=== PATIENT | female | born 1935 | race Caucasian/White ===

== ENCOUNTER 2020-11-14 11:06 | Inpatient (IN) | payer OTHER ==
[~2020-11-14 11:06] MED LIST: PREDNISONE 20MG20 MG PO
[2020-11-14 12:27] LABS: BASOPHIL 0.5 % (0-2); EOSINOPHIL 2.4 % (0-7); HCT 43.6 % (37.0-47.0); HGB 14.2 g/dl (12.5-16.0); LYMPHOCYTE 29.3 % (15-48); MCH 31.2 pg (25.0-31.0); MCHC 32.6 g/dL (32.0-36.0); MCV 95.8 fL (78.0-100.0); MONOCYTE 8.9 % (0-12); MPV 8.1 fL (6.0-9.5); NEUTROPHIL 58.7 % (41-80); NRBC 0; PLT 260 K/uL (150-400); RBC 4.55 M/uL (4.20-5.40); RDW 11.6 % (11.5-14.0); WBC 5.5 K/uL (4.0-10.5)
[2020-11-14 12:53] LABS: ALBUMIN 3.1 g/dL (3.4-5.0); BILIRUBIN - TOTAL 0.4 mg/dL (0.2-1.0); BUN/CREAT RATIO (CALC) 14.3 RATIO; CREATININE 1.05 mg/dL (0.51-0.95); GLOBULIN (CALCULATION) 3.5 g/dL; MAGNESIUM 1.7 mg/dL (1.8-2.4); POTASSIUM 4.5 mmol/L (3.5-5.1); TOTAL PROTEIN 6.6 g/dL (6.4-8.2)
[2020-11-14 14:32] LABS: BILIRUBIN NEGATIVE (NEGATIVE); BLOOD NEGATIVE Ery/uL (NEGATIVE); CLARITY CLEAR (CLEAR); COLOR YELLOW (YELLOW); GLUCOSE (U) NORMAL (NORMAL); LEUKOCYTES NEGATIVE Leu/uL (NEGATIVE); NITRITE NEGATIVE (NEGATIVE); PROTEIN NEGATIVE (NEGATIVE); UROBILINOGEN 0.2 mg/dL (0.2-1.0); pH 7.5 (5.0-9.0)
[2020-11-14] MEDS ORDERED: CHLORTHALIDONE25 MG PO (22:47)
[2020-11-14] MEDS ORDERED: LEVOTHYROXINE75 MC1 PO (22:47)
[2020-11-14] MEDS ORDERED: MINIPRES1 MG PO (22:48)
[2020-11-14] MEDS ORDERED: SERTRALINE HCL50 MG PO (22:48)
[2020-11-14] MEDS ORDERED: LOVASTATIN10 MG PO (22:48)
[2020-11-15 05:22] LABS: BUN/CREAT RATIO (CALC) 16.8 RATIO; CREATININE 1.01 mg/dL (0.51-0.95); POTASSIUM 3.9 mmol/L (3.5-5.1)
[2020-11-15] MEDS ORDERED: SERTRALINE HCL50 MG PO (06:01)
--- NOTE | 2020-11-15 10:00 | NUR ---
PATIENT GOT HERSELF UP TO BEDSIDE COMMODE, HAD REMOVED TELEMETRY LEADS AND PULLED OUT BOTH IV ACCESS SITES. PATIENT CONFUSED, STATES SHE WAS "JUST GETTING READY TO GET OUT OF HERE". REORIENTED PATIENT, REPLACED TELEMETRY LEADS AND STARTED NEW #20 IN RFA. PATIENT REPOSITIONED IN BED WITH BED ALARM AND TV ON
[2020-11-16 06:11] LABS: BASOPHIL 0.4 % (0-2); EOSINOPHIL 1.7 % (0-7); HCT 44.2 % (37.0-47.0); HGB 14.1 g/dl (12.5-16.0); MCH 29.9 pg (25.0-31.0); MCHC 31.9 g/dL (32.0-36.0); MCV 93.6 fL (78.0-100.0); MONOCYTE 9.1 % (0-12); MPV 8.3 fL (6.0-9.5); NEUTROPHIL 53.5 % (41-80); NRBC 0; PLT 244 K/uL (150-400); RBC 4.72 M/uL (4.20-5.40); RDW 11.5 % (11.5-14.0); WBC 7.2 K/uL (4.0-10.5)
[2020-11-16 06:20] LABS: POTASSIUM 4.1 mmol/L (3.5-5.1)
[2020-11-17 01:08] LABS: CALCIUM, SERUM 9.8 mg/dL (8.7-10.3); PTH, INTACT 44 pg/mL (15-65)
[2020-11-17 06:27] LABS: BASOPHIL 0.6 % (0-2); EOSINOPHIL 2.4 % (0-7); HCT 42.5 % (37.0-47.0); HGB 13.7 g/dl (12.5-16.0); LYMPHOCYTE 36.6 % (15-48); MCH 30.6 pg (25.0-31.0); MCHC 32.2 g/dL (32.0-36.0); MCV 94.9 fL (78.0-100.0); MPV 8.3 fL (6.0-9.5); NEUTROPHIL 49.8 % (41-80); NRBC 0; PLT 243 K/uL (150-400); RBC 4.48 M/uL (4.20-5.40); RDW 11.9 % (11.5-14.0); WBC 6.6 K/uL (4.0-10.5)
[2020-11-17] MEDS ORDERED: ELIQUIS5 MG PO (10:39)
[2020-11-17] MEDS ORDERED: PROAMATINE5 MG PO (10:39)
== END 2020-11-17 14:00 | disposition home health service (06) | DRG 65 ==
LOC: FER 11:06 → FMS 19:09
PROVIDERS: Emergency Medicine; Internal Medicine; ADMIT Allergy & Immunology Allergy
PROC: B24BZZZ Ultrasonography of Heart with Aorta (ICD-10-PCS; principal; 2020-11-14)
DX: I63.9 Cerebral infarction, unspecified (principal); G91.9 Hydrocephalus, unspecified; I48.0 Paroxysmal atrial fibrillation; I10 Essential (primary) hypertension; F03.90 Unspecified dementia, unspecified severity, without behavioral disturbance, psychotic disturbance, mood disturbance, and anxiety; I95.1 Orthostatic hypotension; E03.9 Hypothyroidism, unspecified; I25.10 Atherosclerotic heart disease of native coronary artery without angina pectoris; E83.52 Hypercalcemia; Z20.822 Contact with and (suspected) exposure to COVID-19
CPT/HCPCS: 36415; 70450; 70551; 71045; 80048; 80053; 81003; 82310; 82330; 83605; 83735; 83970; 84484; 85025; 87088; 93005; 93880; 97116; 97162; 97166; 97530-GP; 97535; U0002

== ENCOUNTER 2021-01-29 16:32 | Day surgery (SDCO) | payer OTHER ==
[~2021-01-29 16:32] MED LIST changes: +CHLORTHALIDONE25 MG PO; +ELIQUIS5 MG PO; +LEVOTHYROXINE75 MC1 PO; +LOVASTATIN10 MG PO; +MINIPRES1 MG PO; +PROAMATINE5 MG PO; +SERTRALINE HCL50 MG PO
[2021-01-29 19:20] LABS: BASOPHIL 0.8 % (0-2); EOSINOPHIL 0.9 % (0-7); HCT 42.5 % (37.0-47.0); HGB 13.7 g/dl (12.5-16.0); LYMPHOCYTE 26.7 % (15-48); MCHC 32.2 g/dL (32.0-36.0); MCV 96.2 fL (78.0-100.0); MONOCYTE 9.3 % (0-12); MPV 9.7 fL (6.0-9.5); NRBC 0; PLT 246 K/uL (150-400); RBC 4.42 M/uL (4.20-5.40); RDW 13.6 % (11.5-14.0); WBC 7.9 K/uL (4.0-10.5)
[2021-01-29 19:40] LABS: ALBUMIN 3.7 g/dL (3.4-5.0); BILIRUBIN - TOTAL 0.9 mg/dL (0.2-1.0); BUN/CREAT RATIO (CALC) 15.3 RATIO; CREATININE 1.18 mg/dL (0.51-0.95); GLOBULIN (CALCULATION) 3.1 g/dL; POTASSIUM 3.8 mmol/L (3.5-5.1); TOTAL PROTEIN 6.8 g/dL (6.4-8.2)
[2021-01-29 20:07] LABS: CORONAVIRUS 2019 SARS-COV-2 NEGATIVE (NEGATIVE); INFLUENZA A NAA NEGATIVE (NEGATIVE)
--- NOTE | 2021-01-30 00:33 | NUR ---
NURSE CALLED FAMILY AT 1233 FOR MED REC, FAMILY SAID THEY WERE SLEEPING AND DID NOT GIVE MEDS. NURSE WILL LET [facility] KNOW TO REVIEW MED REC IN MORNING
[2021-01-30 05:44] LABS: BASOPHIL 0.8 % (0-2); HGB 12.6 g/dl (12.5-16.0); LYMPHOCYTE 24.7 % (15-48); MCH 30.7 pg (25.0-31.0); MCHC 32.3 g/dL (32.0-36.0); MCV 94.9 fL (78.0-100.0); MONOCYTE 9.4 % (0-12); MPV 9.6 fL (6.0-9.5); NEUTROPHIL 63.7 % (41-80); NRBC 0; PLT 227 K/uL (150-400); RBC 4.11 M/uL (4.20-5.40); RDW 13.5 % (11.5-14.0); WBC 7.8 K/uL (4.0-10.5)
[2021-01-30 06:06] LABS: BUN/CREAT RATIO (CALC) 17.3 RATIO; CREATININE 1.1 mg/dL (0.51-0.95); POTASSIUM 3.8 mmol/L (3.5-5.1)
[2021-01-31 03:59] LABS: BASOPHIL 0.9 % (0-2); EOSINOPHIL 1.2 % (0-7); HCT 42.2 % (37.0-47.0); HGB 13.5 g/dl (12.5-16.0); LYMPHOCYTE 30.2 % (15-48); MCH 30.5 pg (25.0-31.0); MCV 95.3 fL (78.0-100.0); MONOCYTE 9.3 % (0-12); MPV 9.8 fL (6.0-9.5); NRBC 0; PLT 234 K/uL (150-400); RBC 4.43 M/uL (4.20-5.40); RDW 13.7 % (11.5-14.0); WBC 8.5 K/uL (4.0-10.5)
[2021-01-31 04:18] LABS: BUN/CREAT RATIO (CALC) 15.4 RATIO; CREATININE 1.3 mg/dL (0.51-0.95); POTASSIUM 3.5 mmol/L (3.5-5.1)
[2021-01-31 04:21] LABS: MAGNESIUM 2.2 mg/dL (1.8-2.4)
[2021-02-01 05:34] LABS: BASOPHIL 0.6 % (0-2); EOSINOPHIL 2.7 % (0-7); HCT 42.1 % (37.0-47.0); LYMPHOCYTE 32.7 % (15-48); MCH 30.5 pg (25.0-31.0); MCHC 33.3 g/dL (32.0-36.0); MCV 91.7 fL (78.0-100.0); MONOCYTE 10.3 % (0-12); MPV 9.4 fL (6.0-9.5); NEUTROPHIL 53.6 % (41-80); NRBC 0; PLT 258 K/uL (150-400); RBC 4.59 M/uL (4.20-5.40); RDW 13.3 % (11.5-14.0); WBC 7.8 K/uL (4.0-10.5)
[2021-02-01 05:51] LABS: CREATININE 1.19 mg/dL (0.51-0.95); MAGNESIUM 1.8 mg/dL (1.8-2.4)
[2021-02-01 10:39] LABS: BILIRUBIN NEGATIVE (NEGATIVE); BLOOD NEGATIVE Ery/uL (NEGATIVE); CLARITY CLEAR (CLEAR); GLUCOSE (U) NORMAL (NORMAL); LEUKOCYTES NEGATIVE Leu/uL (NEGATIVE); NITRITE NEGATIVE (NEGATIVE); PROTEIN NEGATIVE (NEGATIVE); UROBILINOGEN 0.2 mg/dL (0.2-1.0)
[2021-02-01 10:49] LABS: COLOR STRAW (YELLOW)
[2021-02-01 10:51] LABS: SQUAMOUS EPITHELIAL CELLS RARE; URINARY WBC RARE
[2021-02-01] MEDS ORDERED: LOPRESSOR25 MG PO (14:19)
[2021-02-01] MEDS ORDERED: LASIX40 MG PO (14:19)
[2021-02-01] MEDS ORDERED: K-DUR20 MEQ PO (14:33)
--- NOTE | 2021-02-01 14:59 | NUR ---
02/01/21 Ms. Kramer has her own home. Her son and [id number], Sanam and Jair Kramer, take Ms. Kramer to their home every day after breakfast. She returns to her home at bedtime. Ms. Kramer has a rw. - A referral was made to [facility] per patient choice for nursing only. A report was given to MS GALINA Fitch.
== END 2021-02-01 15:36 | disposition home health service (06) ==
LOC: FER 16:32 → FMS 22:09
PROVIDERS: Emergency Medicine; Internal Medicine; Nurse Practitioner; ADMIT Internal Medicine
DX: I13.0 Hypertensive heart and chronic kidney disease with heart failure and stage 1 through stage 4 chronic kidney disease, or unspecified chronic kidney disease (principal); I50.1 Left ventricular failure, unspecified; I48.0 Paroxysmal atrial fibrillation; F03.90 Unspecified dementia, unspecified severity, without behavioral disturbance, psychotic disturbance, mood disturbance, and anxiety; N18.2 Chronic kidney disease, stage 2 (mild); E87.6 Hypokalemia; I95.1 Orthostatic hypotension; E03.9 Hypothyroidism, unspecified; J98.11 Atelectasis; E86.0 Dehydration; Z20.822 Contact with and (suspected) exposure to COVID-19; Z79.01 Long term (current) use of anticoagulants; Z79.890 Hormone replacement therapy; Z79.899 Other long term (current) drug therapy; Z86.73 Personal history of transient ischemic attack (TIA), and cerebral infarction without residual deficits; Z87.09 Personal history of other diseases of the respiratory system
CPT/HCPCS: 36415; 36600; 71045; 71250; 80048; 80053; 81001; 82803; 83735; 83880; 84443; 84484; 85025; 93005; G0378; J0696; J1940; J3475; J7030; J7040; U0002

== ENCOUNTER 2021-04-08 10:46 | Emergency (ER) | payer OTHER ==
[~2021-04-08 10:46] MED LIST changes: +K-DUR20 MEQ PO; +LASIX40 MG PO; +LOPRESSOR25 MG PO
[2021-04-08 11:31] LABS: BASOPHIL 0.5 % (0-2); EOSINOPHIL 1.2 % (0-7); HCT 49.1 % (37.0-47.0); HGB 16.1 g/dl (12.5-16.0); LYMPHOCYTE 39.8 % (15-48); MCH 29.6 pg (25.0-31.0); MCHC 32.8 g/dL (32.0-36.0); MCV 90.3 fL (78.0-100.0); MONOCYTE 8.3 % (0-12); MPV 8.9 fL (6.0-9.5); NEUTROPHIL 50.1 % (41-80); NRBC 0; PLT 182 K/uL (150-400); RBC 5.44 M/uL (4.20-5.40); RDW 13.4 % (11.5-14.0); WBC 8.2 K/uL (4.0-10.5)
[2021-04-08 12:07] LABS: ALBUMIN 3.9 g/dL (3.4-5.0); BILIRUBIN - TOTAL 0.7 mg/dL (0.2-1.0); BUN/CREAT RATIO (CALC) 18.3 RATIO; CREATININE 1.15 mg/dL (0.51-0.95); GLOBULIN (CALCULATION) 3.8 g/dL; TOTAL PROTEIN 7.7 g/dL (6.4-8.2)
[2021-04-08 12:15] LABS: BILIRUBIN NEGATIVE (NEGATIVE); BLOOD NEGATIVE Ery/uL (NEGATIVE); CLARITY CLEAR (CLEAR); COLOR YELLOW (YELLOW); GLUCOSE (U) NORMAL (NORMAL); LEUKOCYTES NEGATIVE Leu/uL (NEGATIVE); NITRITE NEGATIVE (NEGATIVE); PROTEIN NEGATIVE (NEGATIVE); UROBILINOGEN 0.2 mg/dL (0.2-1.0)
== END 2021-04-08 12:33 | disposition home or self-care (01) ==
LOC: FER 10:46
PROVIDERS: Emergency Medicine
DX: R41.0 Disorientation, unspecified (principal); G30.9 Alzheimer's disease, unspecified
CPT/HCPCS: 36415; 80053; 81003; 85025; 99285

== ENCOUNTER 2022-01-06 17:45 | Emergency (ER) | payer OTHER ==
[2022-01-06 18:45] LABS: BASOPHIL 0.5 % (0-2); EOSINOPHIL 1.5 % (0-7); HCT 38.4 % (37.0-47.0); LYMPHOCYTE 41.2 % (15-48); MCHC 33.9 g/dL (32.0-36.0); MCV 91.6 fL (78.0-100.0); MONOCYTE 10.5 % (0-12); NRBC 0; PLT 151 K/uL (150-400); RBC 4.19 M/uL (4.20-5.40); RDW 11.7 % (11.5-14.0); WBC 6.5 K/uL (4.0-10.5)
[2022-01-06 18:48] LABS: INR 1.22 (0.9-1.2); PROTHROMBIN TIME 14.8 SECONDS (11.8-13.4)
[2022-01-06 19:03] LABS: BUN/CREAT RATIO (CALC) 12.7 RATIO; CREATININE 1.18 mg/dL (0.51-0.95); POTASSIUM 3.6 mmol/L (3.5-5.1)
[2022-01-06 19:29] LABS: CORONAVIRUS 2019 SARS-COV-2 NEGATIVE (NEGATIVE); INFLUENZA A NAA NEGATIVE (NEGATIVE)
[2022-01-06 20:09] LABS: BILIRUBIN NEGATIVE (NEGATIVE); BLOOD NEGATIVE Ery/uL (NEGATIVE); CLARITY CLEAR (CLEAR); COLOR YELLOW (YELLOW); GLUCOSE (U) NORMAL (NORMAL); LEUKOCYTES TRACE Leu/uL (NEGATIVE); NITRITE NEGATIVE (NEGATIVE); PROTEIN NEGATIVE (NEGATIVE)
[2022-01-06 20:18] LABS: URINARY WBC RARE
[2022-01-06 20:19] LABS: SQUAMOUS EPITHELIAL CELLS RARE
[2022-01-06 20:20] LABS: URINARY RBC RARE
== END 2022-01-06 21:25 | disposition home or self-care (01) ==
LOC: FER 17:45
PROVIDERS: Internal Medicine
DX: R55 Syncope and collapse (principal); R53.83 Other fatigue; F03.90 Unspecified dementia, unspecified severity, without behavioral disturbance, psychotic disturbance, mood disturbance, and anxiety; I10 Essential (primary) hypertension; Z20.822 Contact with and (suspected) exposure to COVID-19
CPT/HCPCS: 36415; 70450; 71045; 80048; 81001; 84484; 85025; 85610; 93005; U0002